=== PATIENT | female | born 1935 | race Caucasian/White ===

== ENCOUNTER 2016-07-05 10:31 | Outpatient (CLI) | payer OTHER ==
[2013-02-17 14:10] VITALS: BP 107/59
== END 2016-07-05 10:32 ==
LOC: LABRHC 10:31
PROVIDERS: ATTEND Podiatrist Public Medicine
DX: E11.9 Type 2 diabetes mellitus without complications (principal)
CPT/HCPCS: 82043

== ENCOUNTER 2016-08-04 10:09 | Outpatient (CLI) | payer OTHER ==
[2013-02-17 14:10] VITALS: BP 107/59
== END 2016-08-04 10:10 ==
LOC: POD 10:09
PROVIDERS: ATTEND Podiatrist Public Medicine
DX: E11.9 Type 2 diabetes mellitus without complications (principal); B35.1 Tinea unguium; L84 Corns and callosities; M79.674 Pain in right toe(s); M79.675 Pain in left toe(s)
CPT/HCPCS: 11721; G0463

== ENCOUNTER 2016-11-17 08:41 | Outpatient (CLI) | payer OTHER ==
[2013-02-17 14:10] VITALS: BP 107/59
== END 2016-11-17 08:42 ==
LOC: POD 08:41
PROVIDERS: ATTEND Podiatrist Public Medicine
DX: E11.9 Type 2 diabetes mellitus without complications (principal); B35.1 Tinea unguium; L60.0 Ingrowing nail; M79.674 Pain in right toe(s); M79.675 Pain in left toe(s)
CPT/HCPCS: 11721; G0463

== ENCOUNTER 2017-02-16 08:20 | Outpatient (CLI) | payer OTHER ==
[2013-02-17 14:10] VITALS: BP 107/59
== END 2017-02-16 08:21 ==
LOC: POD 08:20
PROVIDERS: ATTEND Podiatrist Public Medicine
DX: E11.9 Type 2 diabetes mellitus without complications (principal); L84 Corns and callosities; B35.1 Tinea unguium; L60.0 Ingrowing nail; M79.675 Pain in left toe(s); M79.674 Pain in right toe(s)
CPT/HCPCS: 11721; G0463

== ENCOUNTER 2017-05-18 08:22 | Outpatient (CLI) | payer OTHER ==
[2013-02-17 14:10] VITALS: BP 107/59
== END 2017-05-18 08:23 ==
LOC: POD 08:22
PROVIDERS: ATTEND Podiatrist Public Medicine
DX: E11.9 Type 2 diabetes mellitus without complications (principal); B35.1 Tinea unguium; L84 Corns and callosities; L60.0 Ingrowing nail; M79.674 Pain in right toe(s); M79.675 Pain in left toe(s)
CPT/HCPCS: 11721; G0463

== ENCOUNTER 2017-05-22 08:47 | Emergency (ER) | payer OTHER ==
[2017-05-22 09:03] LABS: BASOPHILS % 0.2 (0.0-1.5); EOSINOPHILS % 0.4 % (0.0-6.8); MEAN CORPUSCULAR VOLUME 96.4 fl (80.0-100.0); MONOCYTES % 2.7 % (0.0-11.0)
[2017-05-22] MEDS ORDERED: 0.9 % SODIUM CHLORIDE 500 ML IV ONE (09:07)
[2017-05-22] MEDS ORDERED: 0.9 % SODIUM CHLORIDE 1,000 ML IV ONE (09:07)
--- NOTE | 2017-05-22 09:11 | ED Physician Documentation ---
GI Bleed - HISTORIAN Historian: patient - HPI Stated Complaint: Diarrhea Chief Complaint: Abdominal Pain Additional Information: This is an 82 year old female admitted with c/o diarrhea and weakness starting last evening. She was very weak this morning and called her brother to bring her to the ER. She says that her diarrhea was stool colored, denies any bloody or tarry consistency. She was able to drink 6 glasses of water this morning just before she came in and was able to keep it down. It is of note that the patient has a hemoglobin of 9.7, which is about 3 grams lower than her last check available for review. Her INR is 5.5. Patient had a large bloody bowel movement in the department. Decision was made to transfer to [facility] under the care of Dr. Queenie Lowery. She will be transferred by ambulance Onset: hours (12) Timing: sudden onset Severity: severe - Associated Symptoms Description of Stools: diarrhea. denies: dark stools, maroon Abdominal Pain: none Emesis Description: clear Description of Rectal Bleed: denies: bleeding w/o stools Other Related Symptoms: light-headedness. denies: nausea, vomiting - ROS CONST: no problems. denies: recent illness SKIN/LYMPH: denies: leg swelling CVS/RESP: denies: chest pain GI/: denies: problems urinating EYES/ENT: denies: problems with vision, sore throat MS: none NEURO/PSYCH: anxiety. denies: headache, lost feeling, confusion - PAST HX Past History: DVT, other (Hyperlipidemia, hypertension) Other History: cancer chemo, other (GERD/esophagitis). denies: AMI, CHF Surgeries/Procedures: hysterectomy (for uterine cancer), other (cataracts, bilaterally, mesenteric lymph node biopsy, Javier fundiplication, EGD, colonoscopy, BSO, Umbilical hernia repair) Immunizations: tetanus, influenza Allergies/Adverse Reactions: Allergies Allergy/AdvReac Type Severity Reaction Status Date / Time cephalexin monohydrate Allergy Verified 05/22/17 08:58 [From Keflex] tramadol Allergy Verified 05/22/17 08:58 - SOCIAL HX Smoking History: non-smoker Alcohol Use: none Drug Use: none - FAMILY HX Family History: none - VITAL SIGNS Vital Signs: Vital Signs Temp Pulse Resp BP Pulse Ox 97 F L 120 H 24 145/70 98 05/22/17 08:50 05/22/17 10:00 05/22/17 08:50 05/22/17 08:50 05/22/17 10:00 Progress - EKG/XRAY/CT EKG: NSR (read as AF, but clearly demonstrable P waves are noted) - Additional EKG/XRAY/Consults EKG #2: NSR ED Results Lab/Radiology - Lab Results Lab Results: Lab Results 05/22/17 05/22/17 05/22/17 08:58 08:57 08:57 WBC RBC Hgb Hct MCV MCH MCHC RDW Plt Count Neut % (Auto) Lymph % (Auto) [place] % (Auto) Eos % (Auto) Baso % (Auto) Neut # (Auto) Lymph # (Auto) [place] # (Auto) Eos # (Auto) Baso # (Auto) Reactive Lymphs % Reactive Lymphs # PT 59.3 Seconds H Seconds (9.4-11.6) INR 5.55 H* (0.9-1.2) Sodium 128 mmol/L L mmol/L (136-145) Potassium 4.0 mmol/L mmol/L (3.5-5.1) Chloride 93 mmol/L L mmol/L (98-107) Carbon Dioxide 21 mmol/L L mmol/L (22-30) BUN 25 mg/dL H mg/dL (7-17) Creatinine 0.80 mg/dL mg/dL (0.52-1.04) Estimated Creat Clear 77 Est GFR ( Amer) > 60 (60 - ) Est GFR (Non-Af Amer) > 60 (60 - ) Glucose 231 mg/dL H mg/dL (74-106) Calcium 7.9 mg/dL L mg/dL (8.4-10.2) Total Bilirubin 0.2 mg/dL mg/dL (0.2-1.3) AST 23 U/L U/L (15-46) ALT 25 U/L U/L (13-69) Alkaline Phosphatase 87 U/L U/L (38-126) Troponin I < 0.03 ng/mL L ng/mL (0.03-0.06) Total Protein 6.5 g/dL g/dL (6.3-8.2) Albumin 3.5 g/dL g/dL (3.5-5.0) 05/22/17 08:57 WBC 12.80 K/ul H K/ul (4.00-12.00) RBC 3.24 M/ul L M/ul (3.90-5.20) Hgb 9.7 g/dL L g/dL (12.0-16.0) Hct 31.3 % L % (34.5-46.5) MCV 96.4 fl fl (80.0-100.0) MCH 30.0 pg pg (28.0-34.0) MCHC 31.1 g/dL g/dL (30.0-36.0) RDW 14.2 % % (11.3-14.3) Plt Count 314 K/mm3 K/mm3 (130-400) Neut % (Auto) 86.6 % H % (39.0-79.0) Lymph % (Auto) 9.1 % L % (16.0-50.0) [place] % (Auto) 2.7 % % (0.0-11.0) Eos % (Auto) 0.4 % % (0.0-6.8) Baso % (Auto) 0.2 (0.0-1.5) Neut # (Auto) 11.0 # k/uL H # k/uL (1.4-7.7) Lymph # (Auto) 1.2 # k/uL # k/uL (0.6-4.0) [place] # (Auto) 0.3 # k/uL # k/uL (0.0-0.9) Eos # (Auto) 0.0 # k/uL # k/uL (0.0-0.6) Baso # (Auto) 0.0 # k/uL # k/uL (0.0-0.5) Reactive Lymphs % 0.9 % % (0.0-5.0) Reactive Lymphs # 0.1 # k/uL # k/uL (0.0-0.8) PT INR Sodium Potassium Chloride Carbon Dioxide BUN Creatinine Estimated Creat Clear Est GFR ( Amer) Est GFR (Non-Af Amer) Glucose Calcium Total Bilirubin AST ALT Alkaline Phosphatase Troponin I Total Protein Albumin - Orders Orders: ED Orders Category Date Time Status Continuous EKG monitoring Q30M Care 05/22/17 08:53 Active Continuous Pulse Oximetry Q30M Care 05/22/17 08:[address] IV Lock 1T Care 05/22/17 08:[address] IV Lock 1T Care 05/22/17 10:32 Active CBC/PLATELET/DIFF Routine Lab 05/22/17 08:57 Completed CMP Routine Lab 05/22/17 08:57 Completed HEMOCCULT ED POC Stat Lab 05/22/17 10:32 Ordered PT-INR Routine Lab 05/22/17 08:57 Completed TROPONIN I (cTnI) Stat Lab 05/22/17 08:58 Completed 0.9 % Sodium Chloride [Normal Saline] 1,000 ml Med 05/22/17 09:07 Discontinued IV .STK-MED 0.9 % Sodium Chloride [Normal Saline] 500 ml Med 05/22/17 09:07 Discontinued IV NOW Phytonadione [Vitamin K] Med 05/22/17 10:35 Discontinued 10 mg .ROUTE .STK-MED ONE Phytonadione [Vitamin K] Med 05/22/17 10:38 Discontinued 5 mg SUBCUT NOW ONE Phytonadione [Vitamin K] Med 05/22/17 10:41 Discontinued 5 mg SUBCUT NOW ONE Oxygen Daily Oxygen 05/22/17 09:00 Ordered EKG WITH COMPARISON Stat Ther 05/22/17 08:53 Ordered Abdominal Pain Physical Exam - Physical Exam General Appearance: mild distress EENT: eye inspection normal, TM's nml (some non occlusive cerumen is noted), dry mucous membranes NECK: normal inspection, thyroid normal RESPIRATORY: no resp distress, chest non-tender, breath sounds normal CVS: reg rate & rhythm (but tachycardic), PMI nml, tachycardia ABDOMEN: soft, no organomegaly, other (Reducible ventral hernia at site of hysterectomy scar) PELVIC EXAM: normal external exam MALE GENITAL: No: other RECTAL: deferred BACK: normal inspection SKIN: other (several small ecchymoses) NEURO: oriented X3, CN's nml as tested, motor nml, sensation nml, mood/affect nml, cognition normal Vital Signs: Vital Signs Temp Pulse Resp BP Pulse Ox 97 F L 120 H 24 145/70 98 05/22/17 08:50 05/22/17 10:00 05/22/17 08:50 05/22/17 08:50 05/22/17 10:00 Discharge Clincal Impression: Diarrhea, Dehydration, GI bleed Referrals: Adolph Driscoll MD [Primary Care Provider] - 2 Days Comments: [facility] Dr. Queenie Lowery accepting Condition: Good Disposition: 02 XFER [facility] HOSP Decision to Admit: NO Decision Time: 10:44
[2017-05-22 09:15] LABS: eGFR (African) > 60; eGFR (Non-African) > 60
[2017-05-22] MEDS ORDERED: PHYTONADIONE 10 MG/1 ML ONE (10:35)
[2017-05-22] MEDS ORDERED: PHYTONADIONE 10 MG/1 ML SUBCUT ONE ×2 (10:38→10:41)
[2017-05-22 11:42] VITALS: BP 91/45
== END 2017-05-22 11:30 | disposition short-term general hospital (02) ==
LOC: ED 08:47
DX: K92.2 Gastrointestinal hemorrhage, unspecified (principal); R19.7 Diarrhea, unspecified; E86.0 Dehydration
CPT/HCPCS: 80053; 84484; 85025; 85610; J3430; J7060; 96361; 96374; 99284; S1016

== ENCOUNTER 2017-05-30 14:12 | Observation (INO) | payer OTHER ==
[2017-05-30 15:17] VITALS: BMI 31.4
--- NOTE | 2017-05-30 15:36 | History and Physical Report ---
History of Present Illnes - History of Present Illness Reason for Visit: tachycardia History of Present Illness: Patient is an 82-year-old white female presented see office dizziness she was not feeling well. Patient states that she was recently admitted to the hospital for a G.I. bleed associated with diverticulitis. Patient had to be transfused for units of packed RBCs. Patient denied that she is had any further bleeding that she is aware of. Patient database she woke up feeling week and tremulous. Patient had not had any syncopal or near syncopal episodes. While hospitalized patient was also found to have what sounds to be a to a fib or a supraventricular tachycardia. Patient states that she was given medication for this. Patient denied that she had any chest pain or chest pressure. Patient did have a cardiac worker been with negative. In the office patient was noted to be tachycardic at 140. It was felt that this may be contributing some to her symptoms was subsequently admitted to the hospital for further evaluation and treatment. - Past Medical History Cardiac: HTN, Hyperlipidemia Gastrointestinal: GI bleed (from diverticuli), Peptic ulcer disease, Other ( hiatal hernia) Heme/Onc: Cancer (Stage 4 Uterine), Other (B DVT) Musculoskeletal: Osteoarthritis - Past Surgical History Past Surgical History: Hysterectomy (BSO), Other (umbilicl hernia repair,liver biopsy, OD cataract, R shoulder dislocation) - Past Social History Smoke: No Alcohol: None Drugs: None Lives: Alone - Health Maintenance Health Maintenance: Influenza Vaccine, Pneumococcal Vaccine, Colonoscopy Influenza Vaccine: Current for this Influenza Season Pneumonia Vaccine: Yes Resuscitation Status: Resusciation Status Resuscitation Status Full Code - Unable to Obtain History Unable to Obtain: No Review of Systems - Review of Systems Constitutional: Weakness. negative: Fever, Chills, Sweats Eyes: negative: pain, vision change ENT: negative: Ear Pain, Ear Discharge, Nose Pain, Nose Discharge, Throat Pain, Throat Swelling Respiratory: negative: Cough, Shortness of Breath, Hemoptysis, SOB with Excertion, Pleuritic Pain, Wheezing Cardiovascular: Palpitations. negative: Chest Pain, Orthopnea, Paroxysmal Noc. Dyspnea, Edema, Light Headedness Gastrointestinal: negative: Nausea, Vomiting, Abdominal Pain, Diarrhea, Constipation, Melena, Hematochezia Genitourinary: negative: Dysuria, Frequency Musculoskeletal: Shoulder Pain, Back Pain. negative: Neck Pain Skin: negative: Rash Neurological: negative: Numbness, Incoordination - Medications/Allergies Allergies/Adverse Reactions: Allergies Allergy/AdvReac Type Severity Reaction Status Date / Time cephalexin monohydrate Allergy Verified 05/22/17 08:58 [From Keflex] tramadol Allergy Verified 05/22/17 08:58 Home Medications: Home Medications Sennosides/Docusate Sodium [Senna-Docusate Sodium Tablet] 1 each PO 05/30/17 Potassium Chloride [K-Tab ER] 8 meq PO DIRECTED 05/31/17 Current Inpatient Medications: Current Inpatient Medications Diltiazem HCl (Cardizem Cd) 180 mg PO DAILY [facility] Furosemide (Lasix) 40 mg PO QD [facility] Lisinopril (Prinivil) 2.5 mg PO DAILY [facility] Metformin HCl (Glucophage) [address] [place] [address] [facility] Miscellaneous (Chem Sticks) 1 each CHEMQID [facility] Pantoprazole Sodium (Protonix) 40 mg PO 0700 [facility] Potassium Chloride (Klor-Con 10) 10 meq PO DAILY [facility] Sodium Chloride (Normal Saline Flush) 3 ml IV BID MILE Triamterene/HCTZ (Dyazide 37.5/25) 0.5 each PO DAILY [facility] Exam - Exam Vital Signs: Vital Signs (72 hours) 05/30/17 14:47 Temperature 97.6 F Pulse Rate [ 111 H Pulse ox] Respiratory 24 Rate Blood Pressure 157/82 [Right Arm] O2 Sat by Pulse 96 Oximetry General: Alert, Oriented to Person, Oriented to Place, Oriented to Time, Cooperative, Mild distress HEENT: Atraumatic, Mouth Mucous membr. moist/[place], Decreased Hearing Acuity. No : Pharyngeal Erythema Neck: No: Stridor Carotids: WNL Thyroid: WNL Lungs: Clear to auscultation, Normal air movement, Speaks full Sentences. No: Respiratory Distress, Wheezes, Rales, Rhonchi Cardiovascular: Regular rate, Normal S1, Normal S2, No murmurs. No: Gallops, Rubs, Murmur Abdomen: Normal bowel sounds, Soft, No tenderness, No hepatospenomegaly, No masses. No: Distended, Hepatomegaly Integumentary: Normal, [place], Warm, Dry Extremities: No clubbing, No cyanosis, Other (trace edema) Neurological: Normal gait, Normal speech, Strength Equal Bilat, Normal tone, Sensation intact, Cranial nerves 3-12 NL, Reflexes 2+ Psych/Mental Status: Mental status NL, Mood NL, Appropriate Affect, Intact Judgment Assessment/Plan - Assessment/Plan (1) Tachycardia Status: Acute Assessment: will get EKG and place on monitor. Will consider increasing dose fo diltiazem (2) DM type 2 (diabetes mellitus, type 2) Status: Chronic Qualifiers: Diabetes mellitus complication status: without complication Diabetes mellitus meterman insulin use: without meterman use Qualified Code(s): E11.9 - Type 2 diabetes mellitus without complications (3) Anemia Status: Acute Qualifiers: Anemia type: other cause Other causes of anemia: other cause, not classified Qualified Code(s): D64.89 - Other specified anemias Narrative Support Text: recent diverticuli bleed requiring 4 units of blood., clipping done VTE Assessment - RISK FACTOR SCORE VTE RISK FACTOR SCORES: AGE OVER 60 YEARS, ANTICIPATED BED CONFINEMENT OR IMMOBILIZATION > 24 HOURS - RISK VTE MODERATE RISK: SCORE OF 2 (RISK PROXIMAL DVT 2-4%) PROPHYAXIS NEEDED (Had recent GI bleed, risk > then benifit at this time)
[2017-05-30] MEDS ORDERED: FUROSEMIDE 40 MG TABLET PO SCH (16:00)
[2017-05-30 16:44] LABS: BASOPHILS % 0.8 (0.0-1.5); EOSINOPHILS % 3.2 % (0.0-6.8); MEAN CORPUSCULAR HEMOGLOBIN 29.9 pg (28.0-34.0); MEAN CORPUSCULAR VOLUME 91.6 fl (80.0-100.0); MONOCYTES % 5.1 % (0.0-11.0); NEUTROPHILS # 4.5 # k/uL (1.4-7.7)
[2017-05-30 16:59] LABS: eGFR (African) > 60; eGFR (Non-African) > 60
[2017-05-30] MEDS: PANTOPRAZOLE SODIUM 40 MG TABLET PO SCH (17:20)
[2017-05-30] MEDS: DILTIAZEM HCL 120 MG CAP.ER.24H PO SCH (18:55)
[2017-05-30] MEDS: POTASSIUM CHLORIDE 10 MEQ TABLET.ER PO SCH (20:23)
[2017-05-30] MEDS: SALINE FLUSH 10 ML DISP.SYRIN IV SCH (20:26)
[2017-05-31] MEDS: PANTOPRAZOLE SODIUM 40 MG TABLET PO SCH (06:02)
[2017-05-31] MEDS: POTASSIUM CHLORIDE 10 MEQ TABLET.ER PO SCH (08:55)
[2017-05-31] MEDS ORDERED: DILTIAZEM HCL 180 MG CAP.ER.24H PO SCH (09:00)
[2017-05-31] MEDS ORDERED: POTASSIUM CHLORIDE 10 MEQ TABLET.ER PO SCH (09:00)
[2017-05-31] MEDS ORDERED: TRIAMTERENE/HCTZ 1 EACH CAP PO SCH (09:00)
[2017-05-31] MEDS ORDERED: LISINOPRIL 2.5 MG TABLET PO SCH (09:00)
[2017-05-31] MEDS: SALINE FLUSH 10 ML DISP.SYRIN IV SCH (09:59)
[2017-05-31] MEDS ORDERED: DILTIAZEM HCL 120 MG CAP.ER.24H PO SCH (10:00)
[2017-05-31] MEDS ORDERED: BUSPIRONE HCL 5 MG TABLET PO SCH (10:00)
[2017-05-31] MEDS: DILTIAZEM HCL 120 MG CAP.ER.24H PO SCH (10:03)
[2017-05-31] MEDS ORDERED: ACETAMINOPHEN 325 MG TABLET PO PRN (10:35)
[2017-05-31 11:15] VITALS: BP 173/89
--- NOTE | 2017-05-31 17:50 | Discharge Summary ---
Discharge Summary - Discharge Sumary History of Present Illness: Patient is an 82-year-old white female presented see office dizziness she was not feeling well. Patient states that she was recently admitted to the hospital for a G.I. bleed associated with diverticulitis. Patient had to be transfused for units of packed RBCs. Patient denied that she is had any further bleeding that she is aware of. Patient database she woke up feeling week and tremulous. Patient had not had any syncopal or near syncopal episodes. While hospitalized patient was also found to have what sounds to be a to a fib or a supraventricular tachycardia. Patient states that she was given medication for this. Patient denied that she had any chest pain or chest pressure. Patient did have a cardiac worker been with negative. In the office patient was noted to be tachycardic at 140. It was felt that this may be contributing some to her symptoms was subsequently admitted to the hospital for further evaluation and treatment. Home Medications: Ambulatory Orders Medication Instructions Recorded Sennosides/Docusate Sodium 1 each PO 05/30/17 [Senna-Docusate Sodium Tablet] Potassium Chloride [K-Tab ER] 8 meq PO DIRECTED 05/31/17 Allergies/Adverse Reactions: Allergies Allergy/AdvReac Type Severity Reaction Status Date / Time cephalexin monohydrate Allergy Verified 05/22/17 08:58 [From Keflex] tramadol Allergy Verified 05/22/17 08:58 Discharge Summary: Patient had an EKG done we did show some atrial fibrillation with rapid ventricular response. Patient was started on a diltiazem drip with some improvement in her rate. Patient was transitioned over to peel diltiazem which he tolerated well. Patient blood pressure remained stable. Patient did not have any chest pain or chest pressure. Rich felt that the patient was stable enough that she could men be managed on an outpatient basis and was subsequently discharged home in stable condition. - Final Diagnosis (1) Tachycardia Problems: improved
== END 2017-05-31 13:20 | disposition home or self-care (01) ==
LOC: SOUTH 14:12
PROVIDERS: ADMIT Family Medicine; ATTEND Family Medicine
DX: R00.0 Tachycardia, unspecified (principal); E11.9 Type 2 diabetes mellitus without complications; D64.89 Other specified anemias
CPT/HCPCS: 80053; 84484; 85025; 93005; G0378; G0379; 96360; 96361; 99217; 99219; S1016

== ENCOUNTER 2017-07-23 21:14 | Emergency (ER) | payer OTHER ==
--- NOTE | 2017-07-23 21:28 | ED Physician Documentation ---
GI Bleed - HISTORIAN Historian: patient - HPI Chief Complaint: Abdominal Pain Additional Information: 82yo white female who states that this afternoon she started to develop some constant abd pain, discribed as being achy in nature. Patient denies any nausea or vomiting. Last BM was today and was reported to be normal. No blood noted. No diarrhea noted. Patient has had previous abd surgery. She has a large ventral hernia which she has had for years. Denies any abd distention. Patient denies any fever or chills. Presents to the ED for further evaluation and treatment. Patient was treated for lower GI bleeding at [facility] in April. She had a colonoscopy done at that time. Bleeding was fetl to be related to diverticular disease. Patient denies any further melena or hematachezia. Onset: hours (8 hours) - Associated Symptoms Description of Stools: denies: constipation, diarrhea Abdominal Pain: aching. denies: cramping Description of Rectal Bleed: denies: bleeding w/o stools, bright red blood on paper, blood mixed w/ stool, blood streaks on stool Other Related Symptoms: denies: nausea, vomiting, back pain - ROS CONST: denies: fever, chills SKIN/LYMPH: denies: leg swelling, rash CVS/RESP: none. denies: shortness of breath GI/: rectal intercourse. denies: problems urinating MS: none - PAST HX Past History: GI bleeding, other ([place] esophagitis, OA, Hx of stage 4 endometrial cancer, Bilateral DVT, Anticoagulation therapy, Hiatal hernia, ) Other History: A-Fib (paroxysmal), diabetes Type 2, hypertension Surgeries/Procedures: hysterectomy ([place]OLAND, BSO), other (umbilical hernia repair, liver bx, cartaract extraction, right shoulder dislocation, vena cave filter placed) Immunizations: referred to PCP Allergies/Adverse Reactions: Allergies Allergy/AdvReac Type Severity Reaction Status Date / Time cephalexin monohydrate Allergy Verified 07/23/17 21:29 [From Keflex] tramadol Allergy Verified 07/23/17 21:29 Home Medications: Ambulatory Orders Medication Instructions Recorded Potassium Chloride [K-Tab ER] 8 meq PO DIRECTED 05/31/17 Amiodarone HCl [Pacerone] 200 mg PO QD 07/23/17 Aspirin [Irais] 81 mg PO DAILY 07/23/17 Enalapril Maleate [Vasotec] 2.5 mg PO DAILY 07/23/17 Triamterene/Hydrochlorothiazid 1 each PO DAILY 07/23/17 [Triamterene-Hctz 37.5-25 mg Cp] - SOCIAL HX Smoking History: non-smoker Alcohol Use: none - FAMILY HX Family History: none - VITAL SIGNS Vital Signs: Vital Signs Temp Pulse Resp BP Pulse Ox 99.6 F 100 H 20 204/99 97 07/23/17 21:15 07/23/17 21:15 07/23/17 21:15 07/23/17 21:15 07/23/17 21:15 - REVIEWED ASSESSMENTS Nursing Assessment Reviewed: Yes Vitals Reviewed: Yes Progress - Progress Progress: 22:08 Patient's KUB show some possible mild dilitation fo the small bowel. Will get CT scan. Is still having pain. Will give toradal IV. Labs are OK. No urine collected yet. 0100 NG tube placed, x-ray done for conformation. ED Results Lab/Radiology - Lab Results Lab Results: Lab Results 07/23/17 07/23/17 07/23/17 21:34 21:34 21:33 WBC 7.30 K/ul K/ul (4.00-12.00) RBC 4.55 M/ul M/ul (3.90-5.20) Hgb 13.9 g/dL g/dL (12.0-16.0) Hct 43.1 % % (34.5-46.5) MCV 94.8 fl fl (80.0-100.0) MCH 30.6 pg pg (28.0-34.0) MCHC 32.3 g/dL g/dL (30.0-36.0) RDW 14.0 % % (11.3-14.3) Plt Count 268 K/mm3 K/mm3 (130-400) Neut % (Auto) 71.1 % % (39.0-79.0) Lymph % (Auto) 17.5 % % (16.0-50.0) [place] % (Auto) 4.7 % % (0.0-11.0) Eos % (Auto) 4.7 % % (0.0-6.8) Baso % (Auto) 0.5 (0.0-1.5) Neut # (Auto) 5.2 # k/uL # k/uL (1.4-7.7) Lymph # (Auto) 1.3 # k/uL # k/uL (0.6-4.0) [place] # (Auto) 0.3 # k/uL # k/uL (0.0-0.9) Eos # (Auto) 0.3 # k/uL # k/uL (0.0-0.6) Baso # (Auto) 0.0 # k/uL # k/uL (0.0-0.5) Reactive Lymphs % 1.5 % % (0.0-5.0) Reactive Lymphs # 0.1 # k/uL # k/uL (0.0-0.8) Sodium 141 mmol/L mmol/L (136-145) Potassium 4.6 mmol/L mmol/L (3.5-5.1) Chloride 99 mmol/L mmol/L (98-107) Carbon Dioxide 26 mmol/L mmol/L (22-30) BUN 25 mg/dL H mg/dL (7-17) Creatinine 1.10 mg/dL H mg/dL (0.52-1.04) Estimated Creat Clear 59 Est GFR ( Amer) > 60 (60 - ) Est GFR (Non-Af Amer) > 60 (60 - ) Glucose 177 mg/dL H mg/dL (74-106) Calcium 9.2 mg/dL mg/dL (8.4-10.2) Total Bilirubin 0.2 mg/dL mg/dL (0.2-1.3) AST 22 U/L U/L (15-46) ALT 23 U/L U/L (13-69) Alkaline Phosphatase 106 U/L U/L (38-126) Total Protein 7.7 g/dL g/dL (6.3-8.2) Albumin 4.4 g/dL g/dL (3.5-5.0) Lipase 73 U/L U/L (23-300) - Radiology Radiology Impressions: 1 view abdomen Clinical history: PT STATES UPPER ABD PAIN SINCE NOON Findings: Examination of the abdomen in supine view demonstrates inferior vena cava filter in place. Radiopaque objects superimpose the upper abdomen consistent with ingested pills. Degenerative changes are present in the visualized thoracolumbar spine. There are distended small bowel loops. Gas and stool are present in the colon. The small bowel appears distended out of proportion to the colon suggesting partial or early small bowel obstruction. Impression: 1. Distended small bowel loops in the left abdomen. Rule out partial or early small bowel obstruction. 2. Ingested pills overlying the upper abdomen. 3. Thoracolumbar spondylosis. CT of the abdomen and pelvis with contrast Clinical history: PT STATES UPPER ABDOMINAL PAIN X 1 DAY Contrast administered: WATER/OMNI 300 & 88 CC OMNIPAQUE Technique: CT of the abdomen and pelvis was performed with oral and intravenous contrast. Sagittal and coronal reconstructions are performed by the technologist. Findings: There are chronic appearing interstitial changes in the lung bases. Hiatal hernia is evident. The liver and spleen demonstrate normal attenuation without focal defect. Gallbladder is normally distended. Fatty infiltration of the pancreas is evident. There is mild prominence of the adrenal glands likely representing hyperplasia. Kidneys demonstrate symmetric enhancement. Vascular calcification is present in the abdominal aorta without evidence of aneurysm. Inferior vena cava filter is demonstrated. There is a complex ventral abdominal wall hernia with herniated small bowel loops and small bowel obstruction. There is a small bowel feces sign. Bladder is unremarkable. There is no free fluid in the pelvis or abdomen. The uterus is surgically absent. The distal small bowel is decompressed. Gas and stool are present in the colon suggesting early obstruction. Proximal small bowel loops are moderately distended which suggest fairly high grade obstruction. Impression: 1. Complex ventral abdominal wall hernias with herniated small bowel loops and resulting small bowel obstruction. 2. Postoperative changes. 3. Hiatal hernia. 4. Fatty infiltration of the pancreas. 5. Vascular calcification. - Orders Orders: ED Orders Category Date Time Status NG [Insert NG tube] 1T Care 07/24/17 01:[address] IV Lock 1T Care 07/23/17 21:29 Active ABDOMEN 1 VIEW [RAD] Stat Exams 07/23/17 Completed CHEST 1 VIEW [RAD] Routine Exams 07/24/[address] ABDOMEN PELVIS C [CT ABD & PELVIS W/ CON] Stat Exams 07/23/17 Completed CBC/PLATELET/DIFF Routine Lab 07/23/17 21:34 Completed CMP Routine Lab 07/23/17 21:34 Completed LIPASE Stat Lab 07/23/17 21:33 Completed URINALYSIS Routine Lab 07/23/17 Ordered 0.9 % Sodium Chloride [Normal Saline] 500 ml Med 07/23/17 22:30 Ordered IV .Q10H 0.9 % Sodium Chloride [Normal Saline] 500 ml Med 07/23/17 22:08 Discontinued IV .STK-MED Ketorolac Tromethamine [Toradol] Med 07/23/17 22:08 Discontinued 30 mg .ROUTE .STK-MED ONE Ketorolac Tromethamine [Toradol] Med 07/23/17 22:07 Discontinued 30 mg IVP NOW ONE NORMAL SALINE @ 100 MLS/HR(1000ml) Med 07/24/17 01:30 Ordered 0.9 % Sodium Chloride [Normal Saline] 1,000 ml IV .Q10H Ondansetron HCl/Pf [Zofran 4 mg/2 ml] Med 07/23/17 22:14 Discontinued 4 mg IVP NOW ONE fentaNYL CITRATE/PF [Duragesic] Med 07/23/17 23:07 Discontinued 25 mcg IVP NOW ONE fentaNYL CITRATE/PF [Duragesic] Med 07/24/17 00:09 Discontinued 50 mcg IVP NOW ONE Abdominal Pain Physical Exam - Physical Exam General Appearance: alert, moderate distress EENT: eye inspection normal, no signs of dehydration NECK: normal inspection, thyroid normal RESPIRATORY: no resp distress, chest non-tender, breath sounds normal. No: wheezes, rales, rhonchi CVS: reg rate & rhythm, heart sounds normal, equal pulses, no murmur, no gallop ABDOMEN: soft, no organomegaly, normal bowel sounds, no abdominal bruit, other ( prominence in the LUQ area, abd wall weakness, ? hernia, patient state this is normal) SKIN: warm/dry, normal color EXTREMITIES: non-tender, normal range of motion NEURO: oriented X3, CN's nml as tested, motor nml, sensation nml, mood/affect nml, cognition normal Vital Signs: Vital Signs Temp Pulse Resp BP Pulse Ox 99.6 F 100 H 20 204/99 97 07/23/17 21:15 07/23/17 21:15 07/23/17 21:15 07/23/17 21:15 07/23/17 21:15 Discharge Clincal Impression: Small bowel obstruction Referrals: Adolph Driscoll MD [Primary Care Provider] - 08/08/17 Disposition: 02 XFER [facility] Decision to Admit: [id number] Date of Decison to Admit: 07/24/17 Decision Time: 00:49
[2017-07-23 21:37] LABS: BASOPHILS % 0.5 (0.0-1.5); EOSINOPHILS % 4.7 % (0.0-6.8); MEAN CORPUSCULAR HEMOGLOBIN 30.6 pg (28.0-34.0); MEAN CORPUSCULAR VOLUME 94.8 fl (80.0-100.0); MONOCYTES % 4.7 % (0.0-11.0); NEUTROPHILS # 5.2 # k/uL (1.4-7.7)
[2017-07-23 21:50] LABS: eGFR (African) > 60; eGFR (Non-African) > 60
--- NOTE | 2017-07-23 22:02 | Diagnostic Imaging Report ---
ETIENNE OVIEDO [facility] [address] [facility] [address] [place] [address]. [id number] Report Submission Date: Jul 23, 2017 10:00:58 PM SUPERVISOR PLATE PASTING Patient Study Name: NOY CARNEY Date: Jul 23, 2017 9:41:22 PM SUPERVISOR [employer]STING Modality Type: CR Gender: F Description: ABDOMEN : 35 Institution: [facility] Physician: ETIENNE OVIEDO 1 view abdomen Clinical history: PT STATES UPPER ABD PAIN SINCE NOON Findings: Examination of the abdomen in supine view demonstrates inferior vena cava filter in place. Radiopaque objects superimpose the upper abdomen consistent with ingested pills. Degenerative changes are present in the visualized thoracolumbar spine. There are distended small bowel loops. Gas and stool are present in the colon. The small bowel appears distended out of proportion to the colon suggesting partial or early small bowel obstruction. Impression: 1. Distended small bowel loops in the left abdomen. Rule out partial or early small bowel obstruction. 2. Ingested pills overlying the upper abdomen. 3. Thoracolumbar spondylosis. Electronically signed on Jul 23, 2017 10:00:58 PM SUPERVISOR PLATE PASTING by: Torres ROSAS
[2017-07-23] MEDS: 0.9 % SODIUM CHLORIDE 500 ML IV SCH (22:20)
[2017-07-23] MEDS: 0.9 % SODIUM CHLORIDE 500 ML IV ONE (22:23)
[2017-07-23] MEDS: KETOROLAC TROMETHAMINE 30 MG/1ML VIAL ONE (22:23)
[2017-07-23] MEDS: KETOROLAC TROMETHAMINE 30 MG/1ML VIAL IVP ONE (22:28)
[2017-07-23] MEDS: ONDANSETRON HCL/PF 4 MG/ 2ML VIAL IVP ONE (22:28)
[2017-07-23] MEDS: fentaNYL CITRATE/PF 100 MCG/ 2ML AMP IVP ONE (23:15)
[2017-07-24] MEDS: fentaNYL CITRATE/PF 100 MCG/ 2ML AMP IVP ONE ×2 (00:20→02:15)
--- NOTE | 2017-07-24 00:20 | Diagnostic Imaging Report ---
ETIENNE OVIEDO [facility] [address] [facility] [address] [place] [address]. [id number] Report Submission Date: Jul 24, 2017 12:11:41 AM [employer] Patient Study Name: NOY CARNEY Date: Jul 23, 2017 11:47:34 PM [employer] Modality Type: CT\SR Gender: F Description: CT ABD & PELVIS W/ CON : 35 Institution: [facility] Physician: ETIENNE OVIEDO CT of the abdomen and pelvis with contrast Clinical history: PT STATES UPPER ABDOMINAL PAIN X 1 DAY Contrast administered: WATER/OMNI 300 & 88 CC OMNIPAQUE Technique: CT of the abdomen and pelvis was performed with oral and intravenous contrast. Sagittal and coronal reconstructions are performed by the technologist. Findings: There are chronic appearing interstitial changes in the lung bases. Hiatal hernia is evident. The liver and spleen demonstrate normal attenuation without focal defect. Gallbladder is normally distended. Fatty infiltration of the pancreas is evident. There is mild prominence of the adrenal glands likely representing hyperplasia. Kidneys demonstrate symmetric enhancement. Vascular calcification is present in the abdominal aorta without evidence of aneurysm. Inferior vena cava filter is demonstrated. There is a complex ventral abdominal wall hernia with herniated small bowel loops and small bowel obstruction. There is a small bowel feces sign. Bladder is unremarkable. There is no free fluid in the pelvis or abdomen. The uterus is surgically absent. The distal small bowel is decompressed. Gas and stool are present in the colon suggesting early obstruction. Proximal small bowel loops are moderately distended which suggest fairly high grade obstruction. Impression: 1. Complex ventral abdominal wall hernias with herniated small bowel loops and resulting small bowel obstruction. 2. Postoperative changes. 3. Hiatal hernia. 4. Fatty infiltration of the pancreas. 5. Vascular calcification. 6. Diffuse thoracolumbar spondylosis. Electronically signed on Jul 24, 2017 12:11:41 AM [employer] by: Torres ROSAS
[2017-07-24] MEDS: ONDANSETRON HCL/PF 4 MG/ 2ML VIAL IVP ONE (01:45)
[2017-07-24] MEDS ORDERED: 0.9 % SODIUM CHLORIDE 1,000 ML IV ONE (01:59)
[2017-07-24] MEDS: 0.9 % SODIUM CHLORIDE 1,000 ML IV SCH (01:59)
--- NOTE | 2017-07-24 02:17 | Diagnostic Imaging Report ---
ETIENNE OVIEDO [facility] [address] [facility] [address] [address] Report Submission Date: Jul 24, 2017 1:22:05 AM LOAN SERVICING REPRESENTATIVE Patient Study Name: NOY CARNEY Date: Jul 24, 2017 1:08:33 AM LOAN SERVICING REPRESENTATIVE Modality Type: CR Gender: F Description: CHEST : 35 Institution: [facility] Physician: ETIENNE OVIEDO Portable chest History: Nasogastric tube placement Findings: A nasogastric tube terminates in the retrocardiac location, possibly within a hiatal hernia. Low lung volumes are observed. There is no pleural effusion or confluent infiltrate. A right atrial catheter is present. Impression: Nasogastric tube probably terminating in a hiatal hernia. Electronically signed on Jul 24, 2017 1:22:05 AM LOAN SERVICING REPRESENTATIVE by: Stephan ROSAS
[2017-07-24 05:05] VITALS: BP 170/81
[2017-07-24 07:32] LABS: APPEARANCE,URINE CLEAR (CLEAR); COLOR,URINE YELLOW (YELLOW); OCCULT BLOOD,URINE NEGATIVE (NEGATIVE); UROBILINOGEN URINE 0.2 Eu (0.2-1.0)
== END 2017-07-24 02:30 | disposition short-term general hospital (02) ==
LOC: ED 21:14
DX: K43.6 Other and unspecified ventral hernia with obstruction, without gangrene (principal); K44.9 Diaphragmatic hernia without obstruction or gangrene; K56.699 Other intestinal obstruction unspecified as to partial versus complete obstruction
CPT/HCPCS: 71010; 74000; 74177; 80053; 81002; 83690; 85025; 96365; 96375; 96376; 99284; J1885; J2405; J3010; Q9967; J7030; Q9966; S1016

== ENCOUNTER 2017-08-03 17:50 | Inpatient (IN) | payer OTHER ==
[2017-08-03 18:38] VITALS: BMI 32.5
[2017-08-03] MEDS ORDERED: ASPIRIN 81 MG CHEW TAB PO ONE (18:50)
[2017-08-03] MEDS ORDERED: LORazepam 0.5 MG TABLET PO PRN (19:00)
[2017-08-03] MEDS ORDERED: SIMETHICONE 80 MG TAB.CHEW PO PRN (19:09)
--- NOTE | 2017-08-03 19:25 | History and Physical Report ---
History of Present Illnes - History of Present Illness Reason for Visit: Weakness History of Present Illness: Patient transferred to [facility] on 07-24-17 with small bowel obstruction. She had some issues with NG tube being stuck in her hiatal hernia and had to have it placed fluroscopically. She ended up undergoing exploratory laparoscopy on by DR. Rubio who performed adhesolysis with resolution of SBO. She tolerated this well. Eventually passed gas and tolerated advanced diet. She has Afib and a h/o DVT but anticoagulation stopped due to GI bleed 05-13. She missed her repeat EGD as she was hospitalized. 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 She also has an IVC placed. Noted to have low magnesium and has been started on Magnesium Oxide 400 mg bid. Her Cardizem CD was increased from 180 mg to 240 mg daily and her maxizide stopped while at [facility]. Admit to SNF for therapies with the goal to return home. - Past Medical History Cardiac: AFIB (Paroxysmal), HTN, Hyperlipidemia, Other (DVT - has IVC) Gastrointestinal: GERD, GI bleed (from diverticuli), Peptic ulcer disease, Other (Hiatal hernia; Nolasco's Esophagus) Heme/Onc: Cancer (Stage 4 Uterine - s/p chemo and ROLAND with BSO), Iron deficiency anemia, Other (B DVT) Psych: Anxiety, Depression Musculoskeletal: Osteoarthritis Endocrine: Diabetes - Past Surgical History Past Surgical History: Cataract Removal (bilateral), Hysterectomy (BSO - Stage 4 uterine cancer), Hernia Repair (ventral), Other (IVC 2011), Other (umbilicl hernia repair,liver biopsy, OD cataract, R shoulder dislocation) - Past Family History Mother Family History: , Other (Heart failure) Father Family History: , Other (polycythemia) Sister 1 Family History: Cancer (Breast) Brother 1 Family History: CAD - Past Social History Smoke: No Alcohol: None Drugs: None Lives: Alone (; 2 children) - Health Maintenance Health Maintenance: Influenza Vaccine, Pneumococcal Vaccine, Colonoscopy Influenza Vaccine: Current for this Influenza Season Pneumonia Vaccine: No Resuscitation Status: Resusciation Status Resuscitation Status Full Code Review of Systems - Review of Systems Constitutional: Weakness. negative: Fever Eyes: negative: pain ENT: negative: Ear Pain Respiratory: negative: Cough, Shortness of Breath Cardiovascular: negative: Chest Pain Gastrointestinal: negative: Nausea, Vomiting, Abdominal Pain Genitourinary: negative: Dysuria Musculoskeletal: negative: Neck Pain Skin: negative: Rash Neurological: negative: Weakness - Medications/Allergies Allergies/Adverse Reactions: Allergies Allergy/AdvReac Type Severity Reaction Status Date / Time cephalexin monohydrate Allergy Verified 07/23/17 21:29 [From Keflex] tramadol Allergy Verified 07/23/17 21:29 Current Inpatient Medications: Current Inpatient Medications Amiodarone HCl (Pacerone) [address] [facility] Aspirin (Aspirin) 81 mg PO NOW ONE Stop: 08/03/17 18:51 Diltiazem HCl (Cardizem Cd) [address] [facility] Furosemide (Lasix) 40 mg PO DAILY [facility] Lisinopril (Prinivil) [address] [facility] Lorazepam (Ativan) 0.5 mg PO BID PRN PRN Reason: Anxiety Stop: 08/17/17 19:01 Magnesium Oxide (Mag-Oxide) [address] [facility] Metformin HCl (Glucophage) [address] [facility] Miscellaneous (Chem Sticks) [address] [facility] Omeprazole (Omeprazole) [address] [facility] Polyethylene Glycol (Miralax) [address] [facility] Sennosides (Senokot) 8.6 mg PO DAILY PRN PRN Reason: Constipation Simethicone (Gas-X) 125 mg PO BID PRN PRN Reason: Gas Exam - Exam Vital Signs: Vital Signs (72 hours) 08/03/17 08/03/17 08/03/17 18:27 18:31 18:38 Temperature 98.4 F 98.4 F Pulse Rate [ 103 H Brachial] Pulse Rate [ 103 H 103 H Left] Respiratory 20 20 Rate Blood Pressure 178/69 178/69 [Right Arm] O2 Sat by Pulse 96 96 Oximetry General: Alert, Oriented to Person, Oriented to Place, Oriented to Time, Cooperative, No acute distress HEENT: Atraumatic, PERRLA, EOMI, Mouth Mucous membr. moist/[place] Neck: Normal Range of Motion Lungs: Clear to auscultation, Normal air movement, Speaks full Sentences Cardiovascular: Irregularly Irregular. No: Murmur Abdomen: Normal bowel sounds, Soft, No tenderness Integumentary: Normal, Other (Amarjit C/D/I. Bruising of head and face and arms.) Extremities: No edema Neurological: Normal speech, Generalized Weakness Psych/Mental Status: Mental status NL, Mood NL, Appropriate Affect, Intact Judgment Assessment/Plan - Assessment/Plan (1) Weakness Status: Acute Current Visit: Yes Plan: Patient will be admitted to SNF for PT/OT. (2) Afib Status: Chronic Current Visit: No Qualifiers: Atrial fibrillation type: paroxysmal Qualified Code(s): I48.0 - Paroxysmal atrial fibrillation Plan: Patient currently on ASA 81 mg daily due to recent GI bleed. WHILE AT [facility] HER DILTIAZEM DOSE WAS INCREASED FROM 180 MG TO 240 MG. Will watch. Will need new RX on d/C. Watch. 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 PLAN THIS AN OUTPATIENT. She is on omeprazole 40 mg daily at home but will change to protonix per formulary. (4) S/P laparoscopic procedure Status: Acute Current Visit: Yes Plan: Doing well. Watch incision. Amarjit due out in 2 weeks[address] if Dr[address] Jon can take them out as she is to have clinic here to save patient a trip to [place]. (5) H/O: GI bleed Status: Chronic Current Visit: No Plan: Continue PPI. Plan repeat EGD on d/c. (6) HTN (hypertension) Status: Chronic Current Visit: No Qualifiers: Hypertension type: essential hypertension Qualified Code(s): I10 - Essential (primary) hypertension Plan: Recent increase in cardizem. Now off maxzide. Watch BP. Will change potassium to formulary meds also. Check this in a week. Also her enalapril 2.5 mg will become lisinopril 5 mg per formulary. (7) DM type 2 (diabetes mellitus, type 2) Status: Chronic Current Visit: No Qualifiers: Diabetes mellitus complication status: without complication Diabetes mellitus roasterman insulin use: without usp use Qualified Code(s): E11.9 - Type 2 diabetes mellitus without complications Plan: Monitor BS. She was on insulin at [facility] but does not want to do it. She is only on metformin. We can always add another oral agent if needed. Last A1C in clinic was 8.4 in 09/10. Will check in am. VTE Assessment - RISK FACTOR SCORE VTE RISK FACTOR SCORES: AGE OVER 60 YEARS
[2017-08-03] MEDS: POTASSIUM CHLORIDE 20 MEQ TABLET.ER PO SCH ×2 (20:06)
[2017-08-03] MEDS: MAGNESIUM OXIDE 400 MG TABLET PO SCH ×2 (20:07)
[2017-08-03] MEDS: PANTOPRAZOLE SODIUM 40 MG TABLET PO SCH (20:07)
[2017-08-03] MEDS: ACETAMINOPHEN 500 MG TABLET PO PRN (20:19)
[2017-08-04] MEDS ORDERED: ASPIRIN 81 MG CHEW TAB ONE (04:41)
[2017-08-04] MEDS: PANTOPRAZOLE SODIUM 40 MG TABLET PO SCH (06:20)
[2017-08-04] MEDS ORDERED: OMEPRAZOLE 20 MG CAPSULE.DR PO SCH (07:00)
[2017-08-04] MEDS: ACETAMINOPHEN 500 MG TABLET PO PRN ×3 (07:50→17:00)
[2017-08-04 08:33] LABS: BASOPHILS % 0.6 (0.0-1.5); EOSINOPHILS % 1.8 % (0.0-6.8); MEAN CORPUSCULAR HEMOGLOBIN 29.9 pg (28.0-34.0); MEAN CORPUSCULAR VOLUME 91.9 fl (80.0-100.0); MONOCYTES % 5.4 % (0.0-11.0); NEUTROPHILS # 6.2 # k/uL (1.4-7.7)
[2017-08-04 08:42] LABS: eGFR (African) > 60; eGFR (Non-African) > 60
[2017-08-04] MEDS: LISINOPRIL 5 MG TABLET PO SCH (09:20)
[2017-08-04] MEDS: ASPIRIN 81 MG CHEW TAB PO SCH (09:21)
[2017-08-04] MEDS: DILTIAZEM HCL 120 MG CAP.ER.24H PO SCH (09:21)
[2017-08-04] MEDS: FUROSEMIDE 40 MG TABLET PO SCH (09:21)
[2017-08-04] MEDS: POTASSIUM CHLORIDE 20 MEQ TABLET.ER PO SCH ×2 (09:21→19:57)
[2017-08-04] MEDS: MULTIVITAMIN 1 EACH TABLET PO SCH (09:22)
[2017-08-04] MEDS: AMIODARONE HCL 200 MG TABLET PO SCH (09:22)
[2017-08-04] MEDS: MAGNESIUM OXIDE 400 MG TABLET PO SCH ×2 (09:22→19:57)
[2017-08-04] MEDS: POLYETHYLENE GLYCOL 3350 17 GM POWD.PACK PO SCH ×2 (11:31→11:33)
[2017-08-05] MEDS: ACETAMINOPHEN 500 MG TABLET PO PRN ×5 (00:43→19:38)
[2017-08-05] MEDS: PANTOPRAZOLE SODIUM 40 MG TABLET PO SCH (06:22)
[2017-08-05] MEDS: ASPIRIN 81 MG CHEW TAB PO SCH (09:28)
[2017-08-05] MEDS: POTASSIUM CHLORIDE 20 MEQ TABLET.ER PO SCH ×2 (09:28→19:38)
[2017-08-05] MEDS: DILTIAZEM HCL 120 MG CAP.ER.24H PO SCH (09:28)
[2017-08-05] MEDS: MULTIVITAMIN 1 EACH TABLET PO SCH (09:29)
[2017-08-05] MEDS: AMIODARONE HCL 200 MG TABLET PO SCH (09:29)
[2017-08-05] MEDS: FUROSEMIDE 40 MG TABLET PO SCH (09:29)
[2017-08-05] MEDS: MAGNESIUM OXIDE 400 MG TABLET PO SCH ×2 (09:29→19:38)
[2017-08-05] MEDS: LISINOPRIL 5 MG TABLET PO SCH (09:29)
[2017-08-05] MEDS: POLYETHYLENE GLYCOL 3350 17 GM POWD.PACK PO SCH (10:59)
[2017-08-05] MEDS: FUROSEMIDE 20 MG TABLET PO SCH (12:35)
[2017-08-06] MEDS: ACETAMINOPHEN 500 MG TABLET PO PRN ×4 (01:34→19:32)
[2017-08-06] MEDS: PANTOPRAZOLE SODIUM 40 MG TABLET PO SCH (05:32)
[2017-08-06] MEDS: DILTIAZEM HCL 120 MG CAP.ER.24H PO SCH (08:41)
[2017-08-06] MEDS: POTASSIUM CHLORIDE 20 MEQ TABLET.ER PO SCH ×2 (08:41→19:32)
[2017-08-06] MEDS: LISINOPRIL 5 MG TABLET PO SCH (08:41)
[2017-08-06] MEDS: AMIODARONE HCL 200 MG TABLET PO SCH (08:41)
[2017-08-06] MEDS: FUROSEMIDE 40 MG TABLET PO SCH (08:42)
[2017-08-06] MEDS: MULTIVITAMIN 1 EACH TABLET PO SCH (08:42)
[2017-08-06] MEDS: FUROSEMIDE 20 MG TABLET PO SCH (08:42)
[2017-08-06] MEDS: ASPIRIN 81 MG CHEW TAB PO SCH (08:42)
[2017-08-06] MEDS: MAGNESIUM OXIDE 400 MG TABLET PO SCH ×2 (08:42→19:32)
[2017-08-06] MEDS: POLYETHYLENE GLYCOL 3350 17 GM POWD.PACK PO SCH (12:03)
[2017-08-07] MEDS: ACETAMINOPHEN 500 MG TABLET PO PRN ×4 (01:46→14:09)
[2017-08-07] MEDS: PANTOPRAZOLE SODIUM 40 MG TABLET PO SCH (06:20)
[2017-08-07] MEDS: ASPIRIN 81 MG CHEW TAB PO SCH (07:54)
[2017-08-07] MEDS: DILTIAZEM HCL 120 MG CAP.ER.24H PO SCH (07:54)
[2017-08-07] MEDS: FUROSEMIDE 20 MG TABLET PO SCH (07:55)
[2017-08-07] MEDS: POTASSIUM CHLORIDE 20 MEQ TABLET.ER PO SCH ×2 (07:55→20:49)
[2017-08-07] MEDS: FUROSEMIDE 40 MG TABLET PO SCH (07:55)
[2017-08-07] MEDS: MAGNESIUM OXIDE 400 MG TABLET PO SCH ×2 (07:55→20:49)
[2017-08-07] MEDS: LISINOPRIL 5 MG TABLET PO SCH (07:56)
[2017-08-07] MEDS: AMIODARONE HCL 200 MG TABLET PO SCH (07:56)
[2017-08-07] MEDS: MULTIVITAMIN 1 EACH TABLET PO SCH (07:56)
[2017-08-07] MEDS: POLYETHYLENE GLYCOL 3350 17 GM POWD.PACK PO SCH (14:07)
[2017-08-08] MEDS: ACETAMINOPHEN 500 MG TABLET PO PRN ×4 (00:35→23:37)
[2017-08-08] MEDS: PANTOPRAZOLE SODIUM 40 MG TABLET PO SCH (06:01)
[2017-08-08 08:44] LABS: eGFR (African) > 60; eGFR (Non-African) > 60
[2017-08-08] MEDS: POTASSIUM CHLORIDE 20 MEQ TABLET.ER PO SCH ×2 (09:37→19:44)
[2017-08-08] MEDS: AMIODARONE HCL 200 MG TABLET PO SCH (09:37)
[2017-08-08] MEDS: FUROSEMIDE 40 MG TABLET PO SCH (09:37)
[2017-08-08] MEDS: ASPIRIN 81 MG CHEW TAB PO SCH (09:37)
[2017-08-08] MEDS: DILTIAZEM HCL 120 MG CAP.ER.24H PO SCH (09:37)
[2017-08-08] MEDS: MAGNESIUM OXIDE 400 MG TABLET PO SCH ×2 (09:37→19:44)
[2017-08-08] MEDS: MULTIVITAMIN 1 EACH TABLET PO SCH (09:38)
[2017-08-08] MEDS: LISINOPRIL 5 MG TABLET PO SCH (09:43)
[2017-08-08] MEDS: FUROSEMIDE 20 MG TABLET PO SCH (09:44)
[2017-08-08] MEDS: POLYETHYLENE GLYCOL 3350 17 GM POWD.PACK PO SCH (11:09)
[2017-08-08] MEDS: SENNOSIDES 8.6 MG TABLET PO PRN (20:32)
[2017-08-09] MEDS: PANTOPRAZOLE SODIUM 40 MG TABLET PO SCH (06:04)
[2017-08-09] MEDS: ACETAMINOPHEN 500 MG TABLET PO PRN ×4 (06:04→21:17)
[2017-08-09] MEDS: AMIODARONE HCL 200 MG TABLET PO SCH (09:10)
[2017-08-09] MEDS: ASPIRIN 81 MG CHEW TAB PO SCH (09:10)
[2017-08-09] MEDS: MAGNESIUM OXIDE 400 MG TABLET PO SCH ×2 (09:10→20:24)
[2017-08-09] MEDS: MULTIVITAMIN 1 EACH TABLET PO SCH (09:10)
[2017-08-09] MEDS: FUROSEMIDE 20 MG TABLET PO SCH (09:10)
[2017-08-09] MEDS: DILTIAZEM HCL 120 MG CAP.ER.24H PO SCH (09:10)
[2017-08-09] MEDS: POTASSIUM CHLORIDE 20 MEQ TABLET.ER PO SCH ×2 (09:10→20:24)
[2017-08-09] MEDS: LISINOPRIL 5 MG TABLET PO SCH (09:10)
[2017-08-09] MEDS: FUROSEMIDE 40 MG TABLET PO SCH (09:17)
[2017-08-09] MEDS: POLYETHYLENE GLYCOL 3350 17 GM POWD.PACK PO SCH (10:57)
[2017-08-09] MEDS: SENNOSIDES 8.6 MG TABLET PO PRN (20:34)
[2017-08-10] MEDS: ACETAMINOPHEN 500 MG TABLET PO PRN ×4 (02:50→19:42)
[2017-08-10] MEDS: PANTOPRAZOLE SODIUM 40 MG TABLET PO SCH (06:34)
[2017-08-10] MEDS: POTASSIUM CHLORIDE 20 MEQ TABLET.ER PO SCH ×2 (08:06→19:42)
[2017-08-10] MEDS: MAGNESIUM OXIDE 400 MG TABLET PO SCH ×2 (08:06→19:42)
[2017-08-10] MEDS: DILTIAZEM HCL 120 MG CAP.ER.24H PO SCH (08:06)
[2017-08-10] MEDS: AMIODARONE HCL 200 MG TABLET PO SCH (08:06)
[2017-08-10] MEDS: LISINOPRIL 5 MG TABLET PO SCH (08:06)
[2017-08-10] MEDS: ASPIRIN 81 MG CHEW TAB PO SCH (08:06)
[2017-08-10] MEDS: MULTIVITAMIN 1 EACH TABLET PO SCH (08:07)
[2017-08-10] MEDS: FUROSEMIDE 40 MG TABLET PO SCH (10:05)
[2017-08-10] MEDS: POLYETHYLENE GLYCOL 3350 17 GM POWD.PACK PO SCH (10:06)
[2017-08-10] MEDS: SENNOSIDES 8.6 MG TABLET PO PRN (19:42)
[2017-08-11] MEDS: ACETAMINOPHEN 500 MG TABLET PO PRN ×3 (04:19→12:13)
[2017-08-11] MEDS: PANTOPRAZOLE SODIUM 40 MG TABLET PO SCH (06:14)
[2017-08-11] MEDS: ASPIRIN 81 MG CHEW TAB PO SCH (08:50)
[2017-08-11] MEDS: DILTIAZEM HCL 120 MG CAP.ER.24H PO SCH (08:50)
[2017-08-11] MEDS: POTASSIUM CHLORIDE 20 MEQ TABLET.ER PO SCH (08:51)
[2017-08-11] MEDS: SIMETHICONE 80 MG TAB.CHEW PO SCH ×2 (08:51→12:44)
[2017-08-11] MEDS: MAGNESIUM OXIDE 400 MG TABLET PO SCH (08:51)
[2017-08-11] MEDS: FUROSEMIDE 40 MG TABLET PO SCH (08:51)
[2017-08-11] MEDS: MULTIVITAMIN 1 EACH TABLET PO SCH (08:52)
[2017-08-11] MEDS: AMIODARONE HCL 200 MG TABLET PO SCH (08:52)
[2017-08-11] MEDS: LISINOPRIL 5 MG TABLET PO SCH (08:52)
[2017-08-11 09:39] VITALS: BP 131/68
[2017-08-11] MEDS: POLYETHYLENE GLYCOL 3350 17 GM POWD.PACK PO SCH (10:41)
--- NOTE | 2017-08-15 08:12 | Discharge Summary ---
Discharge Summary - Discharge Sumary History of Present Illness: atsav transferred to [facility] on 07-24-17 with small bowel obstruction. She had some issues with NG tube being stuck in her hiatal hernia and had to have it placed fluroscopically. She ended up undergoing exploratory laparoscopy on by DR. Rubio who performed adhesolysis with resolution of SBO. She tolerated this well. Eventually passed gas and tolerated advanced diet. She has Afib and a h/o DVT but anticoagulation stopped due to GI bleed 05-13. She missed her repeat EGD as she was hospitalized. 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 She also has an IVC placed. Noted to have low magnesium and has been started on Magnesium Oxide 400 mg bid. Her Cardizem CD was increased from 180 mg to 240 mg daily and her maxizide stopped while at [facility]. Admit to SNF for therapies with the goal to return home. Condition at Discharge: Stable Home Medications: Ambulatory Orders Medication Instructions Recorded Potassium Chloride [K-Tab ER] 8 meq PO DIRECTED 05/31/17 Amiodarone HCl [Pacerone] 200 mg PO QD 07/23/17 Aspirin [Irais] 81 mg PO DAILY 07/23/17 Enalapril Maleate [Vasotec] 2.5 mg PO DAILY 07/23/17 Triamterene/Hydrochlorothiazid 1 each PO DAILY 07/23/17 [Triamterene-Hctz 37.5-25 mg Cp] Magnesium Oxide [Mag-Oxide] 400 mg PO BID #60 tablet 08/11/17 Ondansetron HCl Rapdis [Zofran Odt] 4 mg PO Q8 PRN #10 tab 08/11/17 Sennosides [Senokot] 8.6 mg PO DAILY PRN tablet 08/11/17 Simethicone [Gas-X] 125 mg PO BID PRN tab.chew 08/11/17 Consultations this Visit: None Procedures this Visit: None Allergies/Adverse Reactions: Allergies Allergy/AdvReac Type Severity Reaction Status Date / Time cephalexin monohydrate Allergy Verified 07/23/17 21:29 [From Keflex] tramadol Allergy Verified 07/23/17 21:29 Discharge Summary: Patient did well with her physical and occupational therapy. Patient was highly motivated and made significant progress during her SNF stay. At the time to discharge she felt that she could manage at home with the help of her spouse. Patient had some loose bowel movements but seem to be doing very well with them. At the time of dismissal Feli is were starting to firm up. Patient denied any hematochezia melena. Patient had very little abdominal pain associated with her surgery. Surgical incision site appear to be healing well. Patient chronic medical problems remain stable on her home medications. Patient did have some hyperglycemia on lab work. Blood sugar did appear to be improving. - Final Diagnosis (1) Weakness Problems: Patient did do well with physical and occupational therapy and made significant improvement. (2) Anemia Problems: HGB stabel at 11.3 (3) S/P laparoscopic procedure Problems: No postoperative complications noted. (4) Afib Problems: Remains stable during the hospitalization. Patient did not have any tachycardia bradycardia. (5) Nolasco esophagus Problems: Was stable. Patient will need to follow up endoscopy done. (6) DM type 2 (diabetes mellitus, type 2) Problems: Patient did have some hyperglycemia but did improve during her hospitalization. (7) HTN (hypertension) Problems: Remains stable on home medications.
--- NOTE | 2017-08-15 08:14 | Inpatient Progress Note ---
Subjective - Required Recertification Statement I anticipate X number of days because-include discharge plan: 2 - Review of Systems Events since last encounter: Patient has been doing well with physical and occupational therapy. It is anticipated that the patient be able to be discharged in today's. Patient is having fairly normal bowel movements at this time. Patient denies that she is having very much abdominal pain associated with her surgery. Cardiovascular: Denies: Chest Pain Gastrointestinal: Denies: Nausea, Vomiting, Abdominal Pain Objective - Exam Vitals and I&O: Vital Signs Temp 98.9 F 08/11/17 09:00 Pulse 88 08/11/17 09:00 Resp 22 08/11/17 09:00 BP 131/68 08/11/17 09:00 Pulse Ox 95 08/11/17 09:00 General: Alert, Oriented to Person, Oriented to Place, Oriented to Time Neck: Supple Lungs: Clear to auscultation, Normal air movement, Speaks full Sentences. No: Respiratory Distress Cardiovascular: Regular rate, Normal S1, Normal S2 Abdomen: Normal bowel sounds, Soft, No tenderness, Other (incisional sites appear to be healing well at this time.) Extremities: No clubbing, No cyanosis, Other (1 plus edema, does seem to be improving.) Skin: Normal, [place], Warm, Dry Psych/Mental Status: Mental status NL, Mood NL - Results Results: Laboratory Results WBC 7.40 K/ul (4.00-12.00) 08/04/17 08:25 RBC 3.80 M/ul (3.90-5.20) L 08/04/17 08:25 Hgb 11.3 g/dL (12.0-16.0) L 08/04/17 08:25 Hct 34.9 % (34.5-46.5) 08/04/17 08:25 MCV 91.9 fl (80.0-100.0) 08/04/17 08:25 MCH 29.9 pg (28.0-34.0) 08/04/17 08:25 MCHC 32.5 g/dL (30.0-36.0) 08/04/17 08:25 RDW 14.6 % (11.3-14.3) H 08/04/17 08:25 Plt Count 485 K/mm3 (130-400) H 08/04/17 08:25 Neut % (Auto) 83.2 % (39.0-79.0) H 08/04/17 08:25 Lymph % (Auto) 7.6 % (16.0-50.0) L 08/04/17 08:25 [place] % (Auto) 5.4 % (0.0-11.0) 08/04/17 08:25 Eos % (Auto) 1.8 % (0.0-6.8) 08/04/17 08:25 Baso % (Auto) 0.6 (0.0-1.5) 08/04/17 08:25 Neut # (Auto) 6.2 # k/uL (1.4-7.7) 08/04/17: Lymph # (Auto) 0.6 # k/uL (0.6-4.0) 08/04/17 08:25 [place] # (Auto) 0.4 # k/uL (0.0-0.9) 08/04/17 08:25 Eos # (Auto) 0.1 # k/uL (0.0-0.6) 08/04/17 08:25 Baso # (Auto) 0.0 # k/uL (0.0-0.5) 08/04/17 08:25 Reactive Lymphs % 1.4 % (0.0-5.0) 08/04/17 08: Reactive Lymphs # 0.1 # k/uL (0.0-0.8) 08/04/17 08:25 Sodium 139 mmol/L (136-145) 08/08/17 08:20 Potassium 4.2 mmol/L (3.5-5.1) 08/08/17 08:20 Chloride 96 mmol/L (98-107) L 08/08/17 08:20 Carbon Dioxide 29 mmol/L (22-30) 08/08/17 08:20 BUN 14 mg/dL (7-17) 08/08/17 08:20 Creatinine 1.00 mg/dL (0.52-1.04) 08/08/17 08:20 Estimated Creat Clear 61 08/08/17 08:20 Est GFR ( Amer) > 60 (60-) 08/08/17 08:20 Est GFR (Non-Af Amer) > 60 (60-) 08/08/17 08:20 Glucose 149 mg/dL (74-106) H 08/08/17 08:20 Calcium 8.8 mg/dL (8.4-10.2) 08/08/17 08:20 Assessment/Plan - Assessment/Plan (1) Weakness Status: Acute Assessment: Patient seemed to be progressing well with physical and occupational therapy. (2) Small bowel obstruction Status: Acute Assessment: No postoperative complications noted.
== END 2017-08-11 13:05 | disposition home or self-care (01) | DRG 948 ==
LOC: SOUTH 17:50
PROVIDERS: ADMIT Family Medicine; ATTEND Family Medicine
DX: R53.1 Weakness (principal); I48.0 Paroxysmal atrial fibrillation; K22.70 Barrett's esophagus without dysplasia; I10 Essential (primary) hypertension; E11.9 Type 2 diabetes mellitus without complications; C55 Malignant neoplasm of uterus, part unspecified
CPT/HCPCS: 80048; 85025; 97110; 97112; 97116; 97161; 97165; 97530; 97535; A9270

== ENCOUNTER 2017-08-18 09:29 | Outpatient (CLI) | payer OTHER | END 2017-08-18 09:30 | LOC: OUT 09:29 | PROVIDERS: ATTEND Colon & Rectal Surgery | DX: Z98.890 Other specified postprocedural states (principal); K56.699 Other intestinal obstruction unspecified as to partial versus complete obstruction | CPT/HCPCS: G0463 ==

== ENCOUNTER 2017-08-22 08:42 | Emergency (ER) | payer OTHER ==
[2017-08-22 09:17] VITALS: BP 142/82
[2017-08-22 09:21] LABS: BASOPHILS % 0.3 (0.0-1.5); MEAN CORPUSCULAR VOLUME 91.5 fl (80.0-100.0); MONOCYTES % 4.7 % (0.0-11.0); NEUTROPHILS # 9.6 # k/uL (1.4-7.7)
[2017-08-22 09:34] LABS: eGFR (African) > 60; eGFR (Non-African) > 60
--- NOTE | 2017-08-22 10:16 | ED Physician Documentation ---
General Adult - HISTORIAN Historian: patient - HPI Stated Complaint: Decreased appetite - PAST HX Allergies/Adverse Reactions: Allergies Allergy/AdvReac Type Severity Reaction Status Date / Time cephalexin monohydrate Allergy Verified 08/22/17 09:27 [From Keflex] tramadol Allergy Verified 08/22/17 09:27 Home Medications: Ambulatory Orders Medication Instructions Recorded Potassium Chloride [K-Tab ER] 8 meq PO DIRECTED 05/31/17 Amiodarone HCl [Pacerone] 200 mg PO QD 07/23/17 Aspirin [Irais] 81 mg PO DAILY 07/23/17 Enalapril Maleate [Vasotec] 2.5 mg PO DAILY 07/23/17 Triamterene/Hydrochlorothiazid 1 each PO DAILY 07/23/17 [Triamterene-Hctz 37.5-25 mg Cp] Magnesium Oxide [Mag-Oxide] 400 mg PO BID #60 tablet 08/11/17 Sennosides [Senokot] 8.6 mg PO DAILY PRN tablet 08/11/17 Simethicone [Gas-X] 125 mg PO BID PRN tab.chew 08/11/17 Ondansetron HCl Rapdis [Zofran Odt] 4 mg PO Q6 PRN #30 tab 08/22/17 - VITAL SIGNS Vital Signs: Vital Signs Temp Pulse Resp BP Pulse Ox 98.9 F 118 H 16 142/82 96 08/22/17 09:10 08/22/17 09:10 08/22/17 09:10 08/22/17 09:10 08/22/17 09:10 ED Results Lab/Radiology - Lab Results Lab Results: Lab Results 08/22/17 08/22/17 09:15 09:15 WBC 10.80 K/ul K/ul (4.00-12.00) RBC 4.08 M/ul M/ul (3.90-5.20) Hgb 11.8 g/dL L g/dL (12.0-16.0) Hct 37.3 % % (34.5-46.5) MCV 91.5 fl fl (80.0-100.0) MCH 29.0 pg pg (28.0-34.0) MCHC 31.7 g/dL g/dL (30.0-36.0) RDW 14.1 % % (11.3-14.3) Plt Count 453 K/mm3 H K/mm3 (130-400) Neut % (Auto) 88.4 % H % (39.0-79.0) Lymph % (Auto) 4.5 % L % (16.0-50.0) [place] % (Auto) 4.7 % % (0.0-11.0) Eos % (Auto) 1.0 % % (0.0-6.8) Baso % (Auto) 0.3 (0.0-1.5) Neut # (Auto) 9.6 # k/uL H # k/uL (1.4-7.7) Lymph # (Auto) 0.5 # k/uL L # k/uL (0.6-4.0) [place] # (Auto) 0.5 # k/uL # k/uL (0.0-0.9) Eos # (Auto) 0.1 # k/uL # k/uL (0.0-0.6) Baso # (Auto) 0.0 # k/uL # k/uL (0.0-0.5) Reactive Lymphs % 1.1 % % (0.0-5.0) Reactive Lymphs # 0.1 # k/uL # k/uL (0.0-0.8) Sodium 136 mmol/L mmol/L (136-145) Potassium 4.1 mmol/L mmol/L (3.5-5.1) Chloride 94 mmol/L L mmol/L (98-107) Carbon Dioxide 28 mmol/L mmol/L (22-30) BUN 19 mg/dL H mg/dL (7-17) Creatinine 1.10 mg/dL H mg/dL (0.52-1.04) Estimated Creat Clear 53 Est GFR ( Amer) > 60 (60 - ) Est GFR (Non-Af Amer) > 60 (60 - ) Glucose 141 mg/dL H mg/dL (74-106) Calcium 9.1 mg/dL mg/dL (8.4-10.2) Total Bilirubin 0.6 mg/dL mg/dL (0.2-1.3) AST 15 U/L U/L (15-46) ALT 19 U/L U/L (13-69) Alkaline Phosphatase 129 U/L H U/L (38-126) Total Protein 7.3 g/dL g/dL (6.3-8.2) Albumin 3.8 g/dL g/dL (3.5-5.0) - Orders Orders: ED Orders Category Date Time Status CBC/PLATELET/DIFF Stat Lab 08/22/17 09:15 Completed CMP Stat Lab 08/22/17 09:15 Completed HELICOBACTER PYLORI AB, IGG Stat Lab 08/22/17 09:15 Received UA W/MICRO IF INDICATED Stat Lab 08/22/17 09:11 Ordered Discharge Prescriptions: Ondansetron HCl Rapdis [Zofran Odt] 4 mg PO Q6 PRN #30 tab PRN Reason: Nausea / Vomiting Referrals: Adolph Driscoll MD [Primary Care Provider] - 2 Days
--- NOTE | 2017-08-22 10:18 | ED Physician Documentation ---
General Adult - HISTORIAN Historian: patient - HPI Stated Complaint: Decreased appetite Chief Complaint: General Adult Onset: days ago Timing: worse Further Comments: yes (82 year old female patient presents with complaints of nause and poor appetite. Patient denies vomiting, denies weight loss. Recent SBO, abdominal resection and swing bed stay at [facility]. Patient complains of "no appetite", "I need that medicine I got after my hysterectomy.") - ROS CONST: recent illness (SBO - resection with hiatal hernia repair and swing bed admission) EYES/ENT: none CVS/RESP: none GI/: nausea, other (BM x 2 this morning). denies: abdominal pain, problems urinating, vomiting, diarrhea MS/SKIN/LYMPH: none NEURO/PSYCH: denies: headache - PAST HX Past History: hypertension, other (anxiety) Surgeries/Procedures: other (SBO - resection and hiatal hernia repair) Allergies/Adverse Reactions: Allergies Allergy/AdvReac Type Severity Reaction Status Date / Time cephalexin monohydrate Allergy Verified 08/22/17 09:27 [From Keflex] tramadol Allergy Verified 08/22/17 09:27 Home Medications: Ambulatory Orders Medication Instructions Recorded Potassium Chloride [K-Tab ER] 8 meq PO DIRECTED 05/31/17 Amiodarone HCl [Pacerone] 200 mg PO QD 07/23/17 Aspirin [Irais] 81 mg PO DAILY 07/23/17 Enalapril Maleate [Vasotec] 2.5 mg PO DAILY 07/23/17 Triamterene/Hydrochlorothiazid 1 each PO DAILY 07/23/17 [Triamterene-Hctz 37.5-25 mg Cp] Magnesium Oxide [Mag-Oxide] 400 mg PO BID #60 tablet 08/11/17 Sennosides [Senokot] 8.6 mg PO DAILY PRN tablet 08/11/17 Simethicone [Gas-X] 125 mg PO BID PRN tab.chew 08/11/17 Ondansetron HCl Rapdis [Zofran Odt] 4 mg PO Q6 PRN #30 tab 08/22/17 - SOCIAL HX Smoking History: non-smoker - FAMILY HX Family History: No - VITAL SIGNS Vital Signs: Vital Signs Temp Pulse Resp BP Pulse Ox 98.9 F 118 H 16 142/82 96 08/22/17 09:10 08/22/17 09:10 08/22/17 09:10 08/22/17 09:10 08/22/17 09:10 - REVIEWED ASSESSMENTS Nursing Assessment Reviewed: Yes Vitals Reviewed: Yes Progress - Progress Progress: Lab work up completed. Call to Dr Driscoll - discussed lab and patient's request for zofran and megace. Will check H. Pylori; Dr Driscoll to call patient and review chart prior to starting megace. Reviewed plan with patient, instructed patient to keep a daily weight chart. Patient expressed unhappiness with no megace prescription today. Explained plan of care and risk verse benefit of megace. ED Results Lab/Radiology - Lab Results Lab Results: Lab Results 08/22/17 08/22/17 09:15 09:15 WBC 10.80 K/ul K/ul (4.00-12.00) RBC 4.08 M/ul M/ul (3.90-5.20) Hgb 11.8 g/dL L g/dL (12.0-16.0) Hct 37.3 % % (34.5-46.5) MCV 91.5 fl fl (80.0-100.0) MCH 29.0 pg pg (28.0-34.0) MCHC 31.7 g/dL g/dL (30.0-36.0) RDW 14.1 % % (11.3-14.3) Plt Count 453 K/mm3 H K/mm3 (130-400) Neut % (Auto) 88.4 % H % (39.0-79.0) Lymph % (Auto) 4.5 % L % (16.0-50.0) [place] % (Auto) 4.7 % % (0.0-11.0) Eos % (Auto) 1.0 % % (0.0-6.8) Baso % (Auto) 0.3 (0.0-1.5) Neut # (Auto) 9.6 # k/uL H # k/uL (1.4-7.7) Lymph # (Auto) 0.5 # k/uL L # k/uL (0.6-4.0) [place] # (Auto) 0.5 # k/uL # k/uL (0.0-0.9) Eos # (Auto) 0.1 # k/uL # k/uL (0.0-0.6) Baso # (Auto) 0.0 # k/uL # k/uL (0.0-0.5) Reactive Lymphs % 1.1 % % (0.0-5.0) Reactive Lymphs # 0.1 # k/uL # k/uL (0.0-0.8) Sodium 136 mmol/L mmol/L (136-145) Potassium 4.1 mmol/L mmol/L (3.5-5.1) Chloride 94 mmol/L L mmol/L (98-107) Carbon Dioxide 28 mmol/L mmol/L (22-30) BUN 19 mg/dL H mg/dL (7-17) Creatinine 1.10 mg/dL H mg/dL (0.52-1.04) Estimated Creat Clear 53 Est GFR ( Amer) > 60 (60 - ) Est GFR (Non-Af Amer) > 60 (60 - ) Glucose 141 mg/dL H mg/dL (74-106) Calcium 9.1 mg/dL mg/dL (8.4-10.2) Total Bilirubin 0.6 mg/dL mg/dL (0.2-1.3) AST 15 U/L U/L (15-46) ALT 19 U/L U/L (13-69) Alkaline Phosphatase 129 U/L H U/L (38-126) Total Protein 7.3 g/dL g/dL (6.3-8.2) Albumin 3.8 g/dL g/dL (3.5-5.0) - Orders Orders: ED Orders Category Date Time Status CBC/PLATELET/DIFF Stat Lab 08/22/17 09:15 Completed CMP Stat Lab 08/22/17 09:15 Completed HELICOBACTER PYLORI AB, IGG Stat Lab 08/22/17 09:15 Received UA W/MICRO IF INDICATED Stat Lab 08/22/17 09:11 Ordered General Adult Physical Exam - PHYSICAL EXAM GENERAL APPEARANCE: mild distress EENT: eye inspection normal, ENT inspection normal, pharynx normal, no signs of dehydration, IFEOMA, no nystagmus, TM's nml RESPIRATORY: no resp distress, chest non-tender, breath sounds normal CVS: reg rate & rhythm, heart sounds normal, equal pulses, no murmur, no gallop , PMI nml, no JVD, no friction rub, 24 ABDOMEN: soft, no organomegaly, normal bowel sounds, no abdominal bruit, no distension, other (healing midline incision with steri strips; mild erythem around umbilicus; no drainage, well approximated. Abd binder in place. 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 He will call you after your H. Pylori lab test is back. A prescription for Zofran has been sent to the pharmacy. Condition: Stable Disposition: 01 HOME, SELF-CARE Decision to Admit: NO Decision Time: 10:00
== END 2017-08-22 10:15 | disposition home or self-care (01) ==
LOC: ED 08:42
DX: R11.0 Nausea (principal)
CPT/HCPCS: 80053; 85025; 86677; 99282

== ENCOUNTER 2017-09-21 09:40 | Outpatient (CLI) | payer OTHER | END 2017-09-21 09:42 | LOC: POD 09:40 | PROVIDERS: ATTEND Podiatrist Public Medicine | DX: E11.9 Type 2 diabetes mellitus without complications (principal); B35.1 Tinea unguium; L84 Corns and callosities; L60.0 Ingrowing nail; M79.674 Pain in right toe(s); M79.675 Pain in left toe(s) | CPT/HCPCS: 11721; G0463 ==

== ENCOUNTER 2017-11-02 13:56 | Outpatient (CLI) | payer OTHER ==
[2017-11-02 14:54] LABS: eGFR (African) > 60; eGFR (Non-African) > 60
== END 2017-11-02 13:57 ==
LOC: LAB 13:56
PROVIDERS: ATTEND Family Medicine
DX: E87.5 Hyperkalemia (principal)
CPT/HCPCS: 36415; 80048

== ENCOUNTER 2017-11-08 10:16 | Outpatient (CLI) | payer OTHER | END 2017-11-08 10:17 | LOC: LAB 10:16 | PROVIDERS: ATTEND Family Medicine | DX: E87.6 Hypokalemia (principal) | CPT/HCPCS: 80048 ==

== ENCOUNTER 2017-12-13 08:57 | Outpatient (CLI) | payer OTHER ==
[2017-12-13] MEDS ORDERED: TRIAMCINOLONE ACETONID 40MG/ML VIAL ONE (08:58)
[2017-12-13] MEDS ORDERED: Lidocaine 1% 5ml(IM or SUTURE)(PAIN CLINIC) ONE (08:58)
[2017-12-13] MEDS ORDERED: WATER FOR INJECTION,STERILE 100 ML VIAL IJ ONE (08:58)
--- NOTE | 2017-12-15 15:45 | LESI WITH FLUORO ---
SUBJECTIVE: Ms. Nunes follows up with me today. This is an 82-year-old white female with left-sided low back pain and left-sided radicular symptoms. I placed a lumbar epidural injection 2 years ago and she got profound relief. Her symptoms are now returning. She has been on Coumadin and that has been stopped. She had a history recently of a GI bleed requiring a transfusion. Plan today for a repeat lumbar epidural steroid injection for lumbar radiculitis on the left side. OPERATIVE PROCEDURE: Left L5-S1 epidural steroid injection with fluoroscopic guidance. DESCRIPTION OF PROCEDURE: The risks and benefits were discussed with the patient including the risk of infection, bleeding, nerve injury, and headache, as well as the risks of steroid exposure causing hyperglycemia, hypertension, osteoporosis, or increased infectious risks. The patient understood these risks and agreed to proceed. Consent was obtained prior to the procedure. The patient was placed in the prone position on the fluoroscopy table with a pillow underneath the abdomen to afford anterior flexion of the lumbar spine. The low back was cleaned and a sterile drape was applied. A needle was advanced with normal saline loss of resistance technique and direct fluoroscopic guidance with a left paramedian approach at the L5-S1 level. On obtaining loss of resistance to normal saline, it was verified that there was no aspiration of CSF or blood. Furthermore, the needle tip location was verified with lateral and AP fluoroscopic views. Omnipaque 240 myelogram dye were injected through the epidural needle. The distribution of the dye was noted to be within the desired distribution within the lumbar epidural space. The medication was injected into the epidural space. The stylet was replaced in the needle and the needle was removed from the back. The patient tolerated the procedure well. The back was cleaned and a bandage was applied over the injection site. The patient was monitored for 20 minutes following the procedure. during this time the vital signs remained stable and the patient experienced no adverse sequelae. The patient was discharged in good condition. ASSESSMENT: Lumbar radiculitis on the left side. PLAN: Left L5-S1 epidural steroid injection with fluoroscopic guidance. FOLLOWUP: Return to clinic if problems develop or worsen. cc: Dr. Fred ROSAS
== END 2017-12-13 09:00 ==
LOC: OUT 08:57
PROVIDERS: ATTEND Anesthesiology Pain Medicine
DX: M54.16 Radiculopathy, lumbar region (principal)
CPT/HCPCS: 62322; 99214; G0463; J3301; Q9966; A4550

== ENCOUNTER 2017-12-21 08:37 | Outpatient (CLI) | payer OTHER | END 2017-12-21 08:40 | LOC: POD 08:37 | PROVIDERS: ATTEND Podiatrist Public Medicine | DX: E11.9 Type 2 diabetes mellitus without complications (principal); B35.1 Tinea unguium; L84 Corns and callosities; L60.0 Ingrowing nail; M79.674 Pain in right toe(s); M79.675 Pain in left toe(s) | CPT/HCPCS: 11721; G0463 ==

== ENCOUNTER 2018-01-29 12:28 | Emergency (ER) | payer OTHER ==
--- NOTE | 2018-01-29 13:02 | ED Physician Documentation ---
General Adult - HISTORIAN Historian: patient - HPI Stated Complaint: fall, head trauma Chief Complaint: General Adult Onset: minutes Timing: still present Severity: moderate Further Comments: yes (Pt is an 82 yo female who tripped and fell over a curb at [facility]. Pt fell to a sitting position and then backwards, striking the back of her head. Pt has scalp abrasions and a scalp hematoma on presentation. Pt did not lose consciousness. She has no neck pain. Tetanus is not utd.) - ROS CONST: no problems EYES/ENT: none CVS/RESP: none GI/: none MS/SKIN/LYMPH: other (scalp abrasions/hematoma) NEURO/PSYCH: other (anxious "shaken up") - PAST HX Past History: other (anxiety/depression, afib, bladder cancer, DM, HTN, SBO, GI bleed, GERD, Hiatal Hernia.) Allergies/Adverse Reactions: Allergies Allergy/AdvReac Type Severity Reaction Status Date / Time cephalexin monohydrate Allergy Verified 08/22/17 09:27 [From Keflex] morphine Allergy Verified 01/29/18 12:57 tramadol Allergy Verified 08/22/17 09:27 Home Medications: Ambulatory Orders Medication Instructions Recorded Amiodarone HCl [Pacerone] 200 mg PO QD 07/23/17 Aspirin [Irais] 81 mg PO DAILY 07/23/17 Enalapril Maleate [Vasotec] 2.5 mg PO DAILY 07/23/17 Magnesium Oxide [Mag-Oxide] 400 mg PO BID #60 tablet 08/11/17 Simethicone [Gas-X] 125 mg PO BID PRN tab.chew 08/11/17 - SOCIAL HX Smoking History: non-smoker - FAMILY HX Family History: No - VITAL SIGNS Vital Signs: Vital Signs Temp Pulse Resp BP Pulse Ox 142/82 08/22/17 10:15 - REVIEWED ASSESSMENTS Nursing Assessment Reviewed: Yes Vitals Reviewed: Yes Progress - Progress Progress: CT head w/o contrast: No mass, midline shift, obstructive hydrocephalus or acute intracranial hemorrhage is present. The ventricles and cortical sulci are enlarged, consistent with atrophy. No extraaxial fluid collection is identified. Impression: Cerebral atrophy. No acute intracranial process. Tdap 0.5 ml IM in ER General Adult Physical Exam - PHYSICAL EXAM GENERAL APPEARANCE: mild distress EENT: eye inspection normal, pharynx normal NECK: normal inspection, supple RESPIRATORY: no resp distress, chest non-tender, breath sounds normal CVS: reg rate & rhythm, heart sounds normal ABDOMEN: soft, no organomegaly, normal bowel sounds BACK: normal inspection SKIN: other (scalp abrasions and hematoma, occiput) EXTREMITIES: non-tender, normal range of motion, no evidence of injury NEURO: oriented X3, CN's nml as tested, motor nml, sensation nml Discharge Clincal Impression: minor head trauma Referrals: Fred Marinelli MD [Primary Care Provider] - Condition: Stable Disposition: 01 HOME, SELF-CARE Decision to Admit: NO Decision Time: 13:45
[2018-01-29 13:18] VITALS: BP 148/65
[2018-01-29] MEDS ORDERED: DIPH,PERTUSS(ACELL),TET VAC/PF 0.5 ML DISP.SYRIN IM ONE (13:42)
--- NOTE | 2018-01-29 16:31 | Diagnostic Imaging Report ---
[facility] [address] [facility].[address] [address] Report Submission Date: Jan 29, 2018 1:31:26 PM CDT Patient Study Name: NOY CARNEY I Date: Jan 29, 2018 1:13:08 PM CDT Modality Type: CT\SR Gender: F Description: CT BRAIN W/O CONTRAST : 35 Institution: [facility] Physician: STONE MUNGUIA CT head without contrast History: Fall, head injury Technique: Images through the brain were obtained without contrast. Findings: No mass, midline shift, obstructive hydrocephalus or acute intracranial hemorrhage is present. The ventricles and cortical sulci are enlarged, consistent with atrophy. No extraaxial fluid collection is identified. Impression: Cerebral atrophy. No acute intracranial process. Electronically signed on Jan 29, 2018 1:31:26 PM CDT by: Nolan ROSAS
== END 2018-01-29 13:53 | disposition home or self-care (01) ==
LOC: ED 12:28
DX: S09.90XA Unspecified injury of head, initial encounter (principal); W19.XXXA Unspecified fall, initial encounter; Y92.29 Other specified public building as the place of occurrence of the external cause; Y93.9 Activity, unspecified; Y99.9 Unspecified external cause status
CPT/HCPCS: 70450; 90471; 90715

== ENCOUNTER 2018-03-27 15:31 | Outpatient (CLI) | payer OTHER ==
[2018-03-27 17:37] LABS: eGFR (Non-African) > 60
[2018-03-27 23:01] LABS: BASO % 0.3 % (0.0-1.5); EOS % 3.1 % (0.0-6.8); LYMPH ABS # 1.02 thou/uL (0.60-4.00); MCH. 30.3 pg (28.0-34.0); MCV 98.6 fL (80.0-100.0); MONOCYTE ABS # 0.35 thou/uL (0.00-0.90); PLATELET COUNT 410 thou/uL (130-400)
== END 2018-03-27 15:32 ==
LOC: LAB 15:31
PROVIDERS: ATTEND Family Medicine
DX: Z51.81 Encounter for therapeutic drug level monitoring (principal); E11.9 Type 2 diabetes mellitus without complications
CPT/HCPCS: 36415; 80053; 83036; 85025

== ENCOUNTER 2018-05-17 12:14 | Outpatient (CLI) | payer OTHER | END 2018-05-17 12:15 | LOC: LABRHC 12:14 | PROVIDERS: ATTEND Family Medicine | DX: N39.0 Urinary tract infection, site not specified (principal); R31.9 Hematuria, unspecified; B96.20 Unspecified Escherichia coli [E. coli] as the cause of diseases classified elsewhere; B96.89 Other specified bacterial agents as the cause of diseases classified elsewhere; Z16.24 Resistance to multiple antibiotics | CPT/HCPCS: 87086; 87186 ==

== ENCOUNTER 2018-08-21 11:13 | Outpatient (CLI) | payer OTHER ==
[2018-08-21 11:38] LABS: BASOPHILS % 0.3 (0.0-1.5); EOSINOPHILS % 2.7 % (0.0-6.8); MEAN CORPUSCULAR HEMOGLOBIN 31.4 pg (28.0-34.0); MONOCYTES % 4.3 % (0.0-11.0); NEUTROPHILS # 4.6 # k/uL (1.4-7.7)
[2018-08-21 11:47] LABS: eGFR (Non-African) 39
== END 2018-08-21 11:15 ==
LOC: LAB 11:13
PROVIDERS: ATTEND Hospitalist
DX: N20.1 Calculus of ureter (principal); D64.9 Anemia, unspecified
CPT/HCPCS: 36415; 80053; 85025

== ENCOUNTER 2019-04-27 11:09 | Outpatient (CLI) | payer OTHER ==
[2019-04-27 11:24] LABS: eGFR (Non-African) 24
[2019-04-27 12:02] LABS: BASOPHILS % 0.4 % (0.0-1.5); NEUTROPHILS # 5.2 # k/uL (1.4-7.7); SEGMENTED NEUTROPHILS % 77 % (39-79)
== END 2019-04-27 11:14 ==
LOC: LABRHC 11:09
PROVIDERS: ATTEND Family Medicine
DX: E11.9 Type 2 diabetes mellitus without complications (principal); I10 Essential (primary) hypertension
CPT/HCPCS: 80053; 83036; 85025